=== PATIENT | female | born 1970 | race Caucasian/White ===

== ENCOUNTER 2021-11-12 09:06 | Outpatient (REF) | payer OTHER, SELFPAY ==
--- NOTE | 2021-11-12 09:15 | CRLHL7_ITS ---
For Patients: As a result of the Century Cures Act, medical imaging exams and procedure reports are released immediately into your electronic medical record. You may view this report before your referring provider. If you have questions, please contact your health care provider. BILATERAL SCREENING MAMMOGRAM WITH COMPUTER-AIDED DETECTION AND TOMOSYNTHESIS TECHNIQUE: CC and MLO views were obtained. These mammographic images have been obtained using full-field digital technique. These mammographic images were interpreted with the benefit of computer-aided detection. Breast Tomosynthesis was used in this interpretation. COMPARISON FILM: 11/11/2020 and 02/16/2017. BREAST COMPOSITION: The breasts are heterogeneously dense, which may obscure small masses FINDINGS: Possible 1.3 cm asymmetry LEFT medial breast 4 cm from the nipple. Negative findings RIGHT breast. IMPRESSION: Possible LEFT breast asymmetry. ASSESSMENT: BI-RADS Category 0: Incomplete: Need Additional Imaging Evaluation and/or Prior Mammograms for Comparison RECOMMENDATION: Recommend CC spot compression view and 90-degree lateral view. Additionally, ultrasound may be needed during the diagnostic evaluation. The [facility] will contact the patient for follow-up. A lay language report of this examination will be provided to the patient. Bozena Pizarro M.D. Diagnostic/Breast Radiologist [email or web address] PT/Dictated by: Bozena Pizarro MD @ 11/12/2021 11:06:00 AM (Electronically Signed)
== END 2021-11-12 09:07 | disposition home or self-care (01) ==
LOC: MAMMO 09:06
PROVIDERS: Visit Provider Nurse Practitioner Family
DX: Z12.31 Encounter for screening mammogram for malignant neoplasm of breast (principal); N63.20 Unspecified lump in the left breast, unspecified quadrant
CPT/HCPCS: 77063; 77067

== ENCOUNTER 2021-11-24 08:29 | Outpatient (CLI) | payer OTHER, SELFPAY ==
--- NOTE | 2021-11-24 08:45 | CRLHL7_ITS ---
For Patients: As a result of the Cures Act, medical imaging exams and procedure reports are released immediately into your electronic medical record. You may view this report before your referring provider. If you have questions, please contact your health care provider. DIGITAL DIAGNOSTIC LEFT MAMMOGRAM WITH TOMOSYNTHESIS AND COMPUTER-AIDED DETECTION, 11/24/2021 CLINICAL HISTORY: LEFT breast mass/asymmetry. COMPARISON: 11/12/2021, 11/11/2020, 02/16/2017. TECHNIQUE: Digital LEFT mammogram in two projections. Tomosynthesis and computer-aided detection utilized. BREAST COMPOSITION: The breasts are heterogeneously dense, which may obscure small masses. FINDINGS: 3D spot compression CC and 3D true lateral LEFT breast mammogram submitted. Decreased conspicuity of asymmetric density within the medial LEFT breast. Benign calcifications are present. No suspicious masses or architectural distortion. IMPRESSION: Normal additional views LEFT breast. No evidence of malignancy. RECOMMENDATIONS: Annual BILATERAL screening mammography. BI-RADS Category 2: Benign A lay language report of this examination will be provided to the patient. Dictated by Liu Ybarra MD @ 11/24/2021 9:16:49 AM jj/Dictated by: Liu Ybarra MD @ 11/24/2021 9:16:00 AM (Electronically Signed)
== END 2021-11-24 08:30 | disposition home or self-care (01) ==
LOC: MAMMO 08:30
PROVIDERS: Visit Provider Nurse Practitioner Family
DX: N63.20 Unspecified lump in the left breast, unspecified quadrant (principal); R92.8 Other abnormal and inconclusive findings on diagnostic imaging of breast
CPT/HCPCS: 77065; G0279

== ENCOUNTER 2023-01-20 16:51 | Emergency (ER) | payer OTHER, SELFPAY ==
[2023-01-20 17:54] VITALS: BP 189/85; PULSE 63; RESP 16; TEMP 36.4; O2SAT 97; BMI 37.4
--- NOTE | 2023-01-20 20:05 | ED.GENADULT ---
HPI - General Adult General Date Seen: 01/20/23 Chief complaint: Dental/Oral/Mouth Injury/Pain Stated complaint: Tooth pain and lump in cheek Time Seen by Provider: 01/20/23 19:48 Source: patient and family (Daughter is interpreting) Mode of arrival: ambulatory History of Present Illness HPI narrative: Patient is a 52-year-old female presented emergency department for right lower jaw pain. She states for the past 3 days she has been having pain at the 231. He has been trying given with a dentist or her primary care provider but cannot get in for several weeks. She states they have been working on that molar in the past and she is looking to have it removed. She states she has take Tylenol ibuprofen which will help with the pain for a couple hours then it comes back. She is unable to eat because it hurts to chew but she is able to open her jaw all the way. Has no issues drinking or breathing. Has not had any fevers or chills. Denies chest pain, shortness of breath, abdominal pain, weakness, numbness, diarrhea, constipation. Related Data Home Medications Medication Instructions Recorded Confirmed acetaminophen 500 mg tablet mg PO 01/20/23 aspirin 325 mg tablet 325 mg PO Q4-6H PRN 01/20/23 01/20/23 aspirin 81 mg tablet,delayed 81 mg PO DAILY 01/20/23 01/20/23 release atorvastatin 40 mg tablet 40 mg PO DAILY 01/20/23 01/20/23 ibuprofen 01/20/23 levothyroxine 75 mcg tablet 75 mcg PO QAM 01/20/23 01/20/23 metformin 500 mg tablet 500 mg PO DAILY 01/20/23 01/20/23 Allergies Allergy/AdvReac Type Severity Reaction Status Date / Time metronidazole [From Flagyl] Allergy Rash Verified 01/20/23 17:59 Review of Systems Status of ROS: Reports: 10 or more systems reviewed and unremarkable except as noted in History and below PFSH PFS Social History Smoking Status: Never smoker How often do you have a drink containing alcohol: 2-4 times a month AUDIT-C Alcohol total score: 2 Exam Narrative: Exam Narrative: Const: Well-nourished, Well-developed, in mild distress Eyes: PERRL, no conjunctival injection, and symmetrical lids ENMT: Atraumatic external nose and ears. Moist mucous membranes. Uvula midline, no tonsillar exudate. Dental randolph noted at tooth 31 with some gingival inflammation and erythema. Mild swelling to right lower jaw Neck: Symmetric, trachea midline, No thyromegaly. CVS: RRR, No murmurs or gallops. Peripheral pulses 2+ and equal in all extremities RESP: Unlabored respiratory effort. Clear to auscultation bilaterally. GI: Nontender/Nondistended, No rebound or guarding. MSK:Extremities w/o deformity, Normal Active ROM Skin: Warm, Dry. No rashes or lesions. Neuro: Normal Muscle tone, No focal neurological deficits. Psych: Awake, Alert, & Oriented x3. Appropriate mood and affect. Const: Vital Signs, click to edit/add: Vital Signs - 24 hr 01/20/23 17:54 Temperature 97.6 F Pulse Rate [Left P ulse Oximeter] 63 Respiratory Rate 16 Blood Pressure [Ri ght Upper Arm] 189/85 H Pulse Oximetry 97 Oxygen Delivery Me thod Room Air Course Vital Signs Vital signs: Initial Vital Signs Temperature 97.6 F 01/20/23 17:54 Temperature Source Temporal Artery Scan 01/20/23 17:54 Pulse Rate 63 01/20/23 17:54 Respiratory Rate 16 01/20/23 17:54 Blood Pressure 189/85 H 01/20/23 17:54 Blood Pressure Mean 119 H 01/20/23 17:54 Blood Pressure Position Sitting 01/20/23 17:54 Pulse Oximetry 97 01/20/23 17:54 Oxygen Delivery Method Room Air 01/20/23 17:54 Vital Signs Temperature 97.6 F 01/20/23 17:54 Pulse Rate 63 01/20/23 17:54 Respiratory Rate 16 01/20/23 17:54 Blood Pressure 189/85 H 01/20/23 17:54 Pulse Oximetry 97 01/20/23 17:54 Oxygen Delivery Method Room Air 01/20/23 17:54 Temperature 97.6 F 01/20/23 17:54 Pulse Rate 63 01/20/23 17:54 Respiratory Rate 16 01/20/23 17:54 Blood Pressure 189/85 H 01/20/23 17:54 Pulse Oximetry 97 01/20/23 17:54 Oxygen Delivery Method Room Air 09/07/23 17:54 Medical Decision Making MDM Narrative Medical decision making narrative: Patient is a 52-year-old female presents emergency department for 231 pain. He the past 3 days. Tylenol and ibuprofen helped for a couple hours then the pain comes back. No difficulty breathing or swallowing he says pain chewing. Is otherwise asymptomatic. She is hypertensive is not having any symptoms from that and thus workup is not necessary. Patient was given oxycodone for pain. She will be started on Augmentin and given a prescription of oxycodone. I informed to take Tylenol ibuprofen 1st use the oxycodone as a last resort. She states she is understandable. At this time there is no signs of deep neck space abscesses or large week angina. There is some mild swelling to the right lower jaw was otherwise unremarkable. She will be discharged home. Discharge Plan Discharge Clinical Impression: Dental caries Patient Disposition: Home, Self-Care Condition: Stable Instructions: Gingivostomatitis (ED) Additional Instructions: Make sure you get a dental appointment as soon as you can. Take Tylenol and ibuprofen for pain and if that is not helping you can use the oxycodone. Take the antibiotics as directed. Return for new or worsening symptoms. Prescriptions: No Action acetaminophen 500 mg tablet PO ibuprofen aspirin 325 mg tablet 325 mg PO Q4-6H PRN atorvastatin 40 mg tablet 40 mg PO DAILY metformin 500 mg tablet 500 mg PO DAILY aspirin 81 mg tablet,delayed release (DR/EC) 81 mg PO DAILY levothyroxine 75 mcg tablet 75 mcg PO QAM Stand Alone Forms: [employer] Info Instructions
[2023-01-20] MEDS: OXYCODONE 5 MG TABLET PO (20:20)
== END 2023-01-20 20:18 | disposition home or self-care (01) ==
LOC: ED 20:13
PROVIDERS: Emergency Provider Student in an Organized Health Care Education/Training Program; PCP Physician Assistant
DX: K02.9 Dental caries, unspecified (principal)
CPT/HCPCS: 99282; A9270

== ENCOUNTER 2023-08-27 14:14 | Outpatient (CLI) | payer OTHER, SELFPAY ==
--- OUTSIDE RECORDS SUMMARY | 2023-09-02 02:37 | XMS_ITS | Clinical Summary ---
Author Name Unknown Organization [facility] Address [place], [place] [address] Care Team Providers Care Merchandise Presentation Associate Name Role Phone Rosita Lexie ASTORGA Primary Care Provider [phone] Allergies Active Allergy Reactions Criticality Noted Date Comments Nitroimidazoles Rash 03/07/2012 Medications Medication Sig Dispensed Refills Start Date End Date Status acetaminophen (TYLENOL EXTRA STRGTH) 500 mg tabletIndications: Accidental fall, initial encounter,Facial injury, initial encounter Take 1-2 Tablets (500-1,000 mg) by mouth 3 times daily if needed for Headache or Pain. Max acetaminophen dose: 4000mg in 24 hrs. 100 Tablet 12/10/2022 Active atorvastatin (LIPITOR) 40 mg tabletIndications: Hypercholesterolem ia,Hypertriglyceri demia,CAD in jamul artery Take 1 Tablet (40 mg) by mouth once daily. 90 Tablet 3 12/10/2022 Active aspirin (ECOTRIN) 81 mg enteric coated tabletIndications: Brain aneurysm,CAD in jamul artery Take 1 Tablet (81 mg) by mouth once daily with a meal. 90 Tablet 3 12/10/2022 Active levothyroxine (SYNTHROID) 75 mcg tabletIndications: Hypothyroidism (acquired) Take 1 Tablet (75 mcg) by mouth before breakfast. 90 Tablet 3 12/10/2022 Active metFORMIN (GLUCOPHAGE) 500 mg tabletIndications: Prediabetes Take 1 Tablet (500 mg) by mouth once daily with a meal. 90 Tablet 3 12/10/2022 Active estradioL (ESTRACE) 0.01% (0.1 mg/g) vaginal creamIndications:V aginal atrophy Insert 0.5 g into the vagina at bedtime. Coloque por v a vaginal todas las noches naty 2 semanas y luego dos veces por semana en curso. 42.5 g 12/15/2022 Active polyethylene glycol-electrolyte (GOLYTELY) 236-22.74-6.74 -5.86 gram suspensionIndicati ons:Encounter for screening colonoscopy Drink 2 liters the day before colonoscopy and 2 liters 6 hours before colonoscopy procedure 4000 mL 06/20/2023 Active hydrOXYzine HCL (ATARAX) 25 mg tabletIndications: Stress reaction,Anxiety Take 1-2 Tablets (25-50 mg) by mouth every 8 hours if needed for Anxiety. 12 Tablet 08/27/2023 Active Active Problems Problem Noted Date Diagnosed Date Mixed hyperlipidemia 04/06/2023 HTN (hypertension) 04/06/2023 Brain aneurysm 01/07/2017 Overview: Bilateral incidental but enlarging MCA aneurysms. S/p stent-assisted coil embolization of right MCA aneurysm and coil embolization of left MCA aneurysm on 10/26/17. Coils/stent are MRI compatible up to 3 Princess. Requires antiplatelet life-long. Hypertriglyceridemia 08/06/2012 NSTEMI (non-ST elevated myocardial infarction) 0 08/05/2012 Overview: No stent placed Congenital hip dysplasia 01/28/2011 Resolved Problems Problem Noted Date Diagnosed Date Resolved Date Type 2 diabetes mellitus wit hout complication, without long-term current use of insulin 04/06/2023 04/12/2023 Troponin level elevated 08/06/201211/14 Cervical mass 03/15/2012 12/10/2022 Encounters Date Type Department Care Team Description 08/27/2023 3:20 PM CDT - 08/27/2023 5:29 PM CDT Emergency [facility] [address] [place] [address] Josh Webb PA Stress reaction (Primary Dx); Anxiety; Acute nonintractable headache, unspecified headache type; Elevated blood pressure reading Discharge Disposition: Home Self Care 08/27/2023 Travel 06/23/2023 Telephone [facility] [address] [place] [address] Shay Giles MD Appointment Reminder (Colonoscopy) from Last 3 Months Immunizations Name Administration Dates Next Due AMB Influenza, IIV3 (Age >=3 years)(Flu Clinic [facility]) 03/12/2013 Influenza, IIV3 (Age >=3 years) 03/12/2013,05/31 Influenza, IIV4 06/13/2018 Influenza, IIV4 (=>6mos) MDV 02/09/2017 Tdap 02/09/2017 Family History Medical History Relation Name Comments Unknown Father Hyperlipidemia Mother Hypertension Mother Diabetes Sister Stroke Sister Heart Disease No Family History Relation Name Status Comments Father Mother Sister Social History Tobacco Use Types Packs/Day Years Used Date Smoking Tobacco: Never Smokeless Tobacco: Never Tobacco Cessation:Counseling Given: Yes Alcohol Use Standard Drinks/Week Comments No 0 (1 standard drink = 0.6 oz pur e alcohol) PHQ-2 Answer Date Recorded PHQ-2 TOTAL SCORE 0 12/10/2022 Social Connections Answer Date Recorded Frequency of Communication with Friends and Fami ly 0 04/06/2023 Financial Resource Strain Answer Date R ecorded Difficulty of Paying Living Expenses 3 04/06/2023 Difficulty of Paying Living Expenses Not on file 04/06/2023 Food Insecurity Answer Date Recorded Worried About Running Out of Food in the Last Ye ar 1 04/06/2023 Transportation Needs Answer Date Record ed Lack of Transportation (Medical) 1 04/06/2023 Housing Stability Answer Date Recorded Unable to Pay for Housing in the Last Year 1 04/06/2023 Sex and Gender Information Value Date Recorded Sex Assigned at Not on file Gender Identity Not on file Sexual Orientation Not on file Obstetrics History Para Term AB IAB SAB Ectopic Multiple Livin g Live Births 3 2 2 1 1 2 Date Outcome GA Total Labor Labor/2nd/3rd Weight Sex Delivery Anes PTL Gabby A1 A5 Name Cl in Term Vag Term Vag SAB Last Filed Vital Signs Vital Sign Reading Time Taken Comments Blood Pressure 164/90 08/27/2023 4:07 PM CDT Pulse 88 08/27/2023 4:07 PM CDT Temperature 37.3 ??C (99.2 ??F) 08/27/2023 3:27 PM CD T Respiratory Rate 20 08/27/2023 3:27 PM CDT Oxygen Saturation 93% 08/27/2023 4:07 PM CDT Inhaled Oxygen Concentration - - Weight 74.6 kg (164 lb 6.4 oz) 08/27/2023 3:27 P M CDT Height 139.7 cm (4' 7) 08/27/2023 3:27 PM CDT Body Mass Index 38.21 08/27/2023 3:27 PM CDT Plan of Treatment Upcoming Encounters Date Type Department Care Team (Late st Contact Info) Description 09/07/2023 1:35 PM CDT Office Visit [facility] [address] [place] [address] Lexie Becker PA [address] [place] [address] Health Maintenance Due Date Last Done Comments Hepatitis C screening for age 18-79 12/04/1989 Colonoscopy through age 75 12/04/2016 Zoster (shingles) series for age 50+ (1 of 2) 12/04/2021 BMI (ht and wt on same day) for age 18+ 12/11/2023 12/10/2022, 06/13/2018, 10/07/2017, Additional history exists Depression screening for age 12+ 12/14/2023 12/13/2022, 12/10/2022, 12/10/2022, Additional history exists Influenza for age 50-64 01/15/2024 06/13/19 19, 02/09/2017, 03/12/2013, Additional history exists Mammogram for age 45-75 04/13/2024 04/13/20 23, 02/16/2017, 03/13/2013, Additional history exists Tetanus booster 02/09/2027 02/09/2017 Lipids for age 45-75 10/13/2027 10/12/2022, 04/15/2022, 10/21/2021, Additional history exists HIV for age 15-65 Completed 05/28/2013 Tdap Completed 02/09/2017 COVID-19 vaccine series Completed 03/08/20 23, 01/20/2022, 04/22/2021, Additional history exists Pneumococcal series for age 6-64 Aged Out No longer eligible based on patient's age to complete this topic Procedures Procedure Name Priority Date/Time Associated Diagnosis Comments CBC WITH AUTO DIFFERENTIAL STAT 08/27/2023 4:12 PM CDT TSH STAT 08/27/2023 4:12 PM CDT BASIC METABOLIC PANEL STAT 08/27/2023 4:12 PM CDT CBC WITH AUTO DIFFERENTIAL STAT 08/27/2023 4:12 PM CDT EKG 12 LEAD STAT 08/27/2023 4:09 PM CDT XR MAMMO BILAT SCREENING Routine 04/13/2023 9:00 AM MEDICAL OR SURGICAL INSTRUMENT MAKER Visit for screening mammogram LIPID PANEL Routine 10/12/2022 1:01 PM CDT ANTI HIV 1/2 Routine 05/28/2013 3:46 PM MEDICAL OR SURGICAL INSTRUMENT MAKER Screening for HIV (human immunodeficiency virus) from Last 3 Months or Most Recently Relevant to Health Maintenance Results * CBC WITH AUTO DIFFERENTIAL (08/27/2023 4:12 PM CDT) WHITE BLOOD COUNT 8.6 4.5 - 11.0 thou/cu mm 08/27/2023 4:18 PM CDT [facility] RED BLOOD COUNT 4.66 4.00 - 5.20 mil/cu mm 08/27/2023 4:18 PM CDT [facility] HEMOGLOBIN 13.5 12.0 - 16.0 g/dL 08/27/2023 4:18 PM CDT [facility] HEMATOCRIT 39.1 33.0 - 51.0 % 08/27/2023 4:[address] [facility] MCV 84 80 - 100 fL 08/27/2023 4:18 PM CDT [facility] MCH 29.0 26.0 - 34.0 pg 08/27/2023 4:18 PM CDT [facility] MCHC 34.5 32.0 - 36.0 g/dL 08/27/2023 4:[address] [facility] RDW 13.9 11.5 - 15.5 % 08/27/2023 4:[address] [facility] PLATELET COUNT 413 140 - 440 thou/cu mm 08/27/2023 4:[address] [facility] MPV 10.2 6.5 - 11.0 fL 08/27/2023 4:[address] [facility] % NEUT 72.7 % 08/27/2023 4:[address] [facility] % LYMPH 16.3 % 08/27/2023 4:[address] [facility] % MONO 9.3 % 08/27/2023 4:[address] [facility] % EOS 1.4 % 08/27/2023 4:[address] [facility] % BASO 0.3 % 08/27/2023 4:[address] [facility] ABSOLUTE NEUTROPHILS 6.3 1.7 - 7.0 thou/cu mm 08/27/2023 4:[address] [facility] ABSOLUTE LYMPHOCYTES 1.4 0.9 - 2.9 thou/cu mm 08/27/2023 4:[address] [facility] ABSOLUTE MONOCYTES 0.8 <0.9 thou/cu mm 08/27/2023 4:[address] [facility] ABSOLUTE EOSINOPHILS 0.1 <0.5 thou/cu mm 08/27/2023 4:[address] [facility] ABSOLUTE BASOPHILS 0.0 <0.3 thou/cu mm 08/27/2023 4:[address] [facility] Blood BLOOD SPECIMEN / Unknown Venipuncture / Unknown 08/27/2023 4:12 PM CDT 08/27/2023 4:15 PM T Josh ASTORGA HEMATOLOGY [facility] [address] [place] [address] * TSH (08/27/2023 4:12 PM CDT) Pathologist [facility] TSH 2.36 0.27 - 4.20 uIU/mL 08/27/2023 4:[address] [facility] Blood BLOOD SPECIMEN / Unknown Venipuncture / Unknown 08/27/2023 4:12 PM CDT 08/27/2023 4:15 PM CDT [facility] - 08/27/2023 4:43 PM CDT In Adults, TSH values between 5.00 and 10.00 uIU/ml do not necessarily indicate the presence of Hypothyroidism. Correlation with clinical findings such as presence of goiter and/or Thyroperoxidase (TPO) Antibody may be helpful. For more information please refer to JUVENTINO 2004; 291: 228-238. Josh ASTORGA CHEMISTRY [facility] [address] [place] [address] * (ABNORMAL) BASIC METABOLIC PANEL (08/27/2023 4:12 PM CDT) Pathologist [facility] SODIUM 141 136 - 145 mmol/L 08/27/2023 4:[address] [facility] POTASSIUM 3.8 3.5 - 5.1 mmol/L 08/27/2023 4:[address] [facility] CHLORIDE 102 98 - 107 mmol/L 08/27/2023 4:[address] [facility] CO2,TOTAL 29 22 - 29 mmol/L 08/27/2023 4:[address] [facility] ANION GAP 10 5 - 18 08/27/2023 4:[address] [facility] GLUCOSE 127(H) 70 - 99 mg/dL 08/27/2023 4:[address] [facility] CALCIUM 9.6 8.6 - 10.0 mg/dL 08/27/2023 4:[address] [facility] BUN 11 6 - 20 mg/dL 08/27/2023 4:[address] [facility] CREATININE 0.69 0.50 - 0.90 mg/dL 08/27/2023 4:43 PM CDT [facility] BUN/CREAT RATIO 16 10 - 20 4:43 PM CDT [facility] eGFR >90 >90 mL/min/1.7 3m2 08/27/2023 4:43 PM CDT [facility] Comment:As of 2021, eG FR is calculated by the CKD-EPI creatinine equation without race adjustment. ??eGFR can be influenced by muscle mass, exercise, and diet. ??The reported eGFR is an estimation only and is only applicable if the renal function is stable. Blood BLOOD SPECIMEN / Unknown Venipuncture / Unknown 08/27/2023 4:12 PM CDT 08/27/2023 4:15 PM CDT Josh ASTORGA CHEMISTRY Performing Organization Address City/[facility] Co de Phone Number [facility] [address] [place] [address] * EKG 12 LEAD (08/27/2023 4:09 PM CDT) Interpretation Normal sinus rhythm Nonspecific ST and T wave abnormality Abnormal ECG When compared with ECG of 07-AUG-2012 23:10, Premature ventricular complexes are no longer Present [facility] NOW Ventricular Rate 81 BPM [facility] NOW Atrial Rate 81 BPM BEYOND NOW P-R Interval 126 ms BEYOND NOW QRS Duration 98 ms BEYOND NOW QT 410 ms BEYOND NOW QTc 476 ms BEYOND NOW P [place] 48 degrees BEYOND NOW R [place] -10 degrees BEYOND NOW T [place] -14 degrees BEYOND NOW 08/27/2023 4:09 PM CDT 08/28/2023 6:15 AM CDT Josh ASTORGA EKG ORD Performing Organization Address City/[facility] Co de Phone Number [place] NOW [place], [place] * XR MAMMO BILAT SCREENING (04/13/2023 9:00 AM MEDICAL OR SURGICAL INSTRUMENT MAKER) Anatomical Region Laterality Modality BREASTS, Breast Left, Breast Right Bilateral Mammography Impressions 04/14/2023 9:22 AM MEDICAL OR SURGICAL INSTRUMENT MAKER ??There is no radiographic evidence for malignancy. ??Recommend annual mammograms. MAMMOGRAM ASSESSMENT: ??ACR 1 Negative PATIENTS: You will also receive a letter with your examination results in an easy to read format. ??If you have questions about your results, please contact your referring provider. Narrative 04/14/2023 9:22 AM MEDICAL OR SURGICAL INSTRUMENT MAKER For Patients: As a result of the Cures Act, medical imaging exams and procedure reports are released immediately into your electronic medical record. You may view this report before your referring provider. If you have questions, please contact your health care provider. XR MAMMO BILAT SCREENING [[id number]] CLINICAL HISTORY: ??This is an asymptomatic 52 y.o. patient. INDICATION FOR EXAM: Mammogram Screening. TECHNIQUE: CC & MLO views were obtained. ??This study was evaluated with the assistance of Computer-Aided Detection. COMPARISON FILM: Yes 11/11/20 Outside Facility 02/16/17 [facility] FINDINGS: ??The breasts are heterogeneously dense, which may obscure small masses. There are no dominant masses, suspicious micro calcifications or areas of architectural distortion. Lexie ASTORGA MAMMO * (ABNORMAL) LIPID PANEL (10/12/2022 1:01 PM CDT) CHOLESTEROL,TOTAL 147 100 - 199 mg/dL 10/13/2022 10:[address] [facility] TRIGLYCERIDES 383(H) <150 mg/dL 10/13/2022 10:[address] [facility] HDL CHOLESTEROL 32(L) >40 mg/dL 10:[address] [facility] NON-HDL CHOLESTEROL 115 <145 mg/dl 10/13/2022 10:[address] [facility] CHOL/HDL RATIO 4.59(H) <4.50 10/13/2022 10:[address] [facility] LDL CHOLESTEROL 38 <=130 mg/dL 10/13/2022 10:[address] [facility] VLDL CHOLESTEROL 77(H) <=30 mg/dL 10/13/2022 10:31 AM CDT [facility] PROVIDER ORDERED STATUS RANDOM 10/13/2022 10:31 AM CDT [facility] Blood BLOOD SPECIMEN / Unknown 10/12/2022 1:01 PM CDT 10/13/2022 9:47 AM CDT [place] Latif MD CHEMISTRY [facility] [address] [place] [address] * ANTI HIV 1/2 (05/28/2013 3:46 PM MEDICAL OR SURGICAL INSTRUMENT MAKER) ANTI HIV 1/2 Non-reacti ve [facility] Blood specimen (specimen) BLOOD SPECIMEN / Unknown 05/28/2013 3:46 PM MEDICAL OR SURGICAL INSTRUMENT MAKER 05/28/2013 3:41 PM MEDICAL OR SURGICAL INSTRUMENT MAKER Mary ASTORGA SEND OUTS [facility] INTERNAL ZIP [id number] [place] [phone] from Last 3 Months or Most Recently Relevant to Health Maintenance Advance Directives * Full Code (Latest Code Status on File) Date Activated Date Inactivated Comments 10/26/2017 8:07 AM 10/27/2017 3:25 PM Question Answer Comments Code Status Discussion: Not Discussed Will dis cuss on day of admission * Full Code Date Activated Date Inactivated Comments 08/05/2012 8:22 PM 08/08/2012 9:44 PM * Full Code Date Activated Date Inactivated Comments 04/25/2012 7:53 PM 04/26/2012 4:05 PM * Full Code Date Activated Date Inactivated Comments 04/25/2012 2:09 PM 04/25/2012 7:53 PM Care Teams Merchandise Presentation Associate Relationship Specialty Start Date End Date Lexie Becker [place] [address] PCP - General Physician Pin 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
--- OUTSIDE RECORDS SUMMARY | 2023-09-02 02:37 | XMS_ITS | Data Portability ---
Author Name Unknown Address [address] [place] [address] Phone [phone] Organization [place] - LEYIOCecilio diaz [facility] Address [address] [place] [phone] Assessment Encounter Date Assessment Date Assessment LastModified by Organization Details LastModified Time 08/24/2021 08/24/2021 Patient will continue care with PCP Dr. Latif. [email or web address] Not available 08/24/2021 15:57:09 01/20/2022 01/20/2022 Moderna bivalent booster Not available 01/20/2022 10:44:54 Plan of Treatment Reminders Order Date Submit Date Provider Last Modified By Organization Details Last Modified Time Details Appointments None recorded. Lab HbA1c (hemoglobi n A1c), blood 2022 023 [facility], [address] [place] [address], [phone], 3 14:30:49 lipid panel, serum 2022 023 [facility], [address] [place] [address], [address], 3 13:00:07 TSH, serum or plasma 2022 023 [facility], [address] [place] [address], [address], 3 13:00:07 HbA1c (hemoglobi n A1c), blood 2022 023 [facility], [address] [place] [address], [address], 3 13:00:07 CBC w/ auto diff 2021 [facility], [facility] [place], [address], 16:55:26 CT + NG RNA, PCR, unspecifie d specimen - Urine 2021 [facility], [address] [facility] [place], [address], 20:48:55 hepatitis C virus Ab, serum 2021 [facility], [facility] [place], [address], 20:48:54 HIV 1+2 Ab + HIV1 p24 Ag, quantitati ve immunoassa y, serum 2021 [facility], [facility] [place], [address], 18:47:10 treponema pallidum screen, serum, reflex confirmati on 2021 [facility], [address] [facility] [place], [address], 2 09:38:13 lipid panel, serum 2021 [facility], [address] [place] [address], [address], 10:15:27 TSH, serum or plasma 2021 [facility], [address] [place] [address], [address], 10:15:27 TSH, serum or plasma 2021 022 [facility], [address] [place] [address], [address], 2 18:23:36 lipid panel, serum 2021 022 [facility], [address] [place] [address], [address], 2 18:17:59 CMP, serum or plasma 2021 022 [facility], [address] [place] [address], [address], 2 18:17:58 TSH, serum or plasma 2020 021 JOSE Not available 1 14:40:28 fecal occult blood, stool [address], [address] [place] [address], [address], 2 15:04:02 lipid panel, serum 2019 020 JOSE Not available 1 15:33:31 hemoglobin A1C/hemogl obin total, QN, blood 2019 020 JOSE Not available 1 13:32:43 CBC w/ auto diff 2019 JOSE Not available 0 10:18:47 CMP, serum or plasma 2019 020 JOSE Not available 0 11:13:22 lipid panel, serum 2019 020 JOSE Not available 0 11:13:22 TSH, serum or plasma 2019 020 JOSE Not available 0 11:13:[address] referral 2022 023 [email or web address] Not available 3 15:11:49 Procedures None recorded. Surgeries None recorded. Imaging MAMMO, screening, bilateral 04/11/ 2022 04/11/2 022 [facility] Non Stat, [address], [place], [address], 17:11:35 Medication Orders Florajen Acidophilu s 20 billion cell capsule 2022 023 [facility], [address] [place] [address], [address], 3 18:42:14 metformin 500 mg tablet 2022 023 [facility], [address] [place] [address], [address], 3 19:50:32 Voltaren Arthritis Pain 1 % topical gel [address], [address], 12:39:37 aspirin 81 mg tablet,del ayed release 2021 022 [facility], [address] [place] [address], [address], 2 13:31:35 atorvastat in 40 mg tablet 2021 022 [facility], [address] [place] [address], [address], 13:31:36 levothyrox ine 75 mcg tablet 2021 022 [facility], [address] [place] [address], [address], 2 13:31:35 aspirin 81 mg tablet,del ayed release 2021 022 [facility], [address] [place] [address], [address], 2 10:40:51 atorvastat in 40 mg tablet [address], [address], 2 10:40:50 Fish Oil 340 mg-1,000 mg capsule [address], [address], 2 12:10:59 levothyrox ine 75 mcg tablet [address], [address], 2 10:40:51 levothyrox ine 100 mcg tablet [email or web address], [address], 2 11:39:46 atorvastat in 40 mg tablet [address], [address], 1 18:13:22 atorvastat in 40 mg tablet 2019 020 [email or web address] Not available 0 15:34:41 atorvastat in 20 mg tablet 2019 020 shaun Not available 0 15:34:04 aspirin 81 mg tablet,del ayed release 2019 020 ATHENAFAX Not available 0 19:25:09 Patient Targets Encounter Date Encounter Id Patient Goals Patient Target Last Modified By Organization Details Last Modified Time incr walking shaun Not available 09/25/2020 10:20:07 Patient Instructions Encounter Date Encounter Id Patient Instructions Last Modified By Organization Details Last Modified Time 10/26/2022 [id number] try to drop weig ht to avoid diabetes and lower lipids shaun Not available 10/27/2022 12:38:17 needs a mammogram shanu Not availabl e 10/27/2022 12:38:32 07/13/2022 [id number] eat three medium sized meals a day shaun Not available 07/14/2022 11:33:50 06/15/2022 [id number] take meds in am, avoid sugary foods shaun Not available 06/15/2022 19:51:47 check glucometer next visit shaun Not available 06/15/2022 20:07:52 02/18/2022 [id number] stick to low cholesterol diet, get a booster shaun Not available 02/18/2022 16:33:32 copies of lab given to patient shaun Not available 02/18/2022 16:33:59 01/20/2022 [id number] May take Ibuprofen/Tylenol prn, ice to arm prn. Not available 01/20/2022 13:02:36 11/12/2021 [id number] decrease carbohydrates justina rice, goal weight is arnd 150 shaun Not available 11/12/2021 13:30:56 08/24/2021 [id number] aprenda acerca d e las pruebas de detecci??n del c??ncer de seno - [learning about breast cancer screening] [email or web address] Not available 08/24/2021 12:10:36 06/04/2021 [id number] will call about stool sample shaun Not available 06/04/2021 10:47:39 12/02/2020 [id number] doing well with lipids shaun Not available 12/02/2020 17:12:49 10/27/2020 [id number] needs mammogram shaun Not available 10/27/2020 18:11:34 call after mammogram shaun Not available 10/27/2020 18:12:08 05/05/2020 [id number] avoid red meat, watch milk products, se margarine, try to walk more shaun Not available 05/05/2020 15:32:16 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 Pr ediabetes Referring Physician: Berlin Latif, Internal Medicine, Encounter Date: 06/15/2022 Results Created Date Observation Date Name Description Value Unit Range Abnormal Flag LastModifiedBy Organization Detail LastModifiedTime 04/11/2004/11/2020 CBC w/ auto diff WBC 8.30 Not Available [facility] [address] [place], [address], 04/11/2020 10:06:24 04/11/20 20 04/11/2020 CBC w/ auto diff HGB 13.9 Not Available [facility] [address] [place], [address], 04/11/2020 10:06:24 04/11/20 20 04/11/2020 CBC w/ auto diff platelet count 429 Not Available [facility] [address] [place], [address], 04/11/2020 10:06:24 04/11/20 20 04/11/2020 TSH, serum or plasm a total cholesterol 191 Not Available [facility] [address] [place], [address], 04/11/2020 11:13:22 04/11/20 20 04/11/2020 TSH, serum or plasm a HDL 24 Not Available [facility] [address] [place], [address], 04/11/2020 11:13:22 04/11/20 20 04/11/2020 TSH, serum or plasm a LDL -199 Not Available [facility] [address] [place], [address], 04/11/2020 11:13:22 04/11/20 20 04/11/2020 TSH, serum or plasm a triglyceride s 1830 Not Available [facility] [address] [place], [address], 04/11/2020 11:13:22 04/11/20 20 04/11/2020 TSH, serum or plasm a ALT 28 Not Available [facility] [address] [place], [address], 04/11/2020 11:13:22 04/11/20 20 04/11/2020 TSH, serum or plasm a creatinine 0.60 Not Available [facility] [address] [place], [address], 04/11/2020 11:13:22 04/11/20 20 04/11/2020 TSH, serum or plasm a TSH 6.29 high Not Available [facility] [address] [place], [address], 04/11/2020 11:13:22 04/11/20 20 04/11/2020 CMP, serum or plasm a total cholesterol 191 Not Available [facility] [address] [place], [address], 04/11/2020 11:13:22 04/11/20 20 04/11/2020 CMP, serum or plasm a HDL 24 Not Available [facility] [address] [place], [address], 04/11/2020 11:13:22 04/11/20 20 04/11/2020 CMP, serum or plasm a LDL -199 Not Available [facility] [address] [place], [address], 04/11/2020 11:13:22 04/11/20 20 04/11/2020 CMP, serum or plasm a triglyceride s 1830 Not Available [facility] [address] [place], [address], 04/11/2020 11:13:22 04/11/20 20 04/11/2020 CMP, serum or plasm a ALT 28 Not Available [facility] [address] [place], [address], 04/11/2020 11:13:22 04/11/20 20 04/11/2020 CMP, serum or plasm a creatinine 0.60 Not Available [facility] [address] [place], [address], 04/11/2020 11:13:22 04/11/20 20 04/11/2020 CMP, serum or plasm a TSH 6.29 high Not Available [facility] [address] [place], [address], 04/11/2020 11:13:22 04/11/20 20 04/11/2020 lipid panel , serum total cholesterol 191 Not Available [facility] [address] [place], [address], 04/11/2020 11:08:14 04/11/20 20 04/11/2020 lipid panel , serum HDL 24 Not Available [facility] [address] [place], [address], 04/11/2020 11:08:14 04/11/20 20 04/11/2020 lipid panel , serum LDL -199 Not Available [facility] [address] [place], [address], 04/11/2020 11:08:14 04/11/20 20 04/11/2020 lipid panel , serum triglyceride s 1830 Not Available [facility] [address] [place], [address], 04/11/2020 11:08:14 04/11/20 20 04/11/2020 lipid panel , serum ALT 28 Not Available [facility] [address] [place], [address], 04/11/2020 11:08:14 04/11/20 20 04/11/2020 lipid panel , serum creatinine 0.60 Not Available [facility] [address] [place], [address], 04/11/2020 11:08:14 04/11/20 20 04/11/2020 lipid panel , serum TSH 6.29 high Not Available [facility] [address] [place], [address], 04/11/2020 11:08:14 07/29/19 21 07/28/2020 hemog lobin A1C/h emogl obin total , QN, blood hemoglobin A1C 6.0 Not Available [facility]) [address] [place], [address], 07/30/2020 13:12:15 07/29/19 21 07/28/2020 lipid panel , serum total cholesterol 185 Not Available Not Available 07/29/2020 15:14:17 07/29/19 21 07/28/2020 lipid panel , serum triglyceride s 972 Not Available Not Available 15:14:17 07/29/19 21 07/28/2020 lipid panel , serum HDL 24 Not Available Not Available 07/14 15:14:17 07/29/19 21 07/28/2020 lipid panel , serum LDL n/a Not Available Not Available 07/14 15:14:17 10/23/19 21 10/22/2020 TSH, serum or plasm a total cholesterol 79 Not Available [address], [address], 10/23/2020 12:44:23 10/23/19 21 10/22/2020 TSH, serum or plasm a triglyceride s 148 Not Available [address], [address], 10/23/2020 12:44:23 10/23/19 21 10/22/2020 TSH, serum or plasm a HDL 28 Not Available [address], [address], 10/23/2020 12:44:23 10/23/19 21 10/22/2020 TSH, serum or plasm a LDL 21 Not Available [address], [address], 10/23/2020 12:44:23 10/23/19 21 10/22/2020 TSH, serum or plasm a TSH 0.02 Not Available [address], [address], 10/23/2020 12:44:23 10/23/19 21 10/22/2020 lipid panel , serum total cholesterol 79 Not Available [facility] [address], [address], 10/23/2020 12:31:12 10/23/19 21 10/22/2020 lipid panel , serum triglyceride s 148 Not Available [address] [place], [address], 10/23/2020 12:31:12 10/23/19 21 10/22/2020 lipid panel , serum HDL 28 Not Available [address], [address], 10/23/2020 12:31:12 10/23/19 21 10/22/2020 lipid panel , serum LDL 21 Not Available [address], [address], 10/23/2020 12:31:12 10/23/19 21 10/22/2020 lipid panel , serum TSH 0.02 Not Available [address], [address], 10/23/2020 12:31:12 05/13/20 21 05/13/2021 TSH, serum or plasm a TSH 3.25 Not Available Not Available 04/17 13:08:29 10/22/19 22 10/21/2021 lipid panel , serum creatinine 0.[address] [facility] [address] [place] [address], [address], 10/22/2021 18:17:59 10/22/19 22 10/21/2021 lipid panel , serum ALT 26 Not Available [facility] [address] [place] [address], [address], 10/22/2021 18:17:59 10/22/19 22 10/21/2021 lipid panel , serum total cholesterol 131 Not Available [facility] [address] [place] [address], [address], 10/22/2021 18:17:59 10/22/19 22 10/21/2021 lipid panel , serum triglyceride s 436 high Not Available [address], [address], 10/22/2021 18:17:59 10/22/19 22 10/21/2021 lipid panel , serum HDL 27 low Not Available [facility] [address] [place] [address], [address], 10/22/2021 18:17:59 10/22/19 22 10/21/2021 lipid panel , serum LDL invalid Not Available [facility] [address] [place] [address], [address], 10/22/2021 18:17:59 10/22/19 22 10/21/2021 CMP, serum or plasm a creatinine 0.73 Not Available [address], [address], 10/22/2021 12:26:12 10/22/19 22 10/21/2021 CMP, serum or plasm a ALT 26 Not Available [facility] [address] [place] [address], [address], 10/22/2021 12:26:12 10/22/19 22 10/21/2021 CMP, serum or plasm a total cholesterol 131 Not Available [address], [address], 10/22/2021 12:26:12 10/22/19 22 10/21/2021 CMP, serum or plasm a triglyceride s 436 high Not Available [address], [address], 10/22/2021 12:26:12 10/22/19 22 10/21/2021 CMP, serum or plasm a HDL 27 low Not Available [facility] [address] [place] [address], [address], 10/22/2021 12:26:12 10/22/19 22 10/21/2021 CMP, serum or plasm a LDL invalid Not Available [facility] [address] [place] [address], [address], 10/22/2021 12:26:12 10/22/19 22 10/21/2021 TSH, serum or plasm a TSH 0.83 Not Available [facility] [address] [place] [address], [address], 10/22/2021 13:12:30 04/15/20 22 04/15/2022 TSH, serum or plasm a total cholesterol 146 Not Available [address], [address], 04/20/2022 10:15:27 04/15/20 22 04/15/2022 TSH, serum or plasm a triglyceride s 297 high Not Available [address], [address], 04/20/2022 10:15:27 04/15/20 22 04/15/2022 TSH, serum or plasm a HDL 37 low Not Available [facility] [address] [place] [address], [address], 04/20/2022 10:15:27 04/15/20 22 04/15/2022 TSH, serum or plasm a LDL 50 Not Available [facility] [address] [place] [address], [address], 04/20/2022 10:15:27 04/15/20 22 04/15/2022 TSH, serum or plasm a TSH 1.83 Not Available [facility] [address] [place] [address], [address], 04/20/2022 10:15:27 04/15/20 22 04/15/2022 lipid panel , serum total cholesterol 146 Not Available [address], [address], 04/18/2022 09:10:31 04/15/20 22 04/15/2022 lipid panel , serum triglyceride s 297 high Not Available [address], [address], 04/18/2022 09:10:31 04/15/20 22 04/15/2022 lipid panel , serum HDL 37 low Not Available [facility] [address] [place] [address], [address], 04/18/2022 09:10:31 04/15/20 22 04/15/2022 lipid panel , serum LDL 50 Not Available [facility] [address] [place] [address], [address], 04/18/2022 09:10:31 04/15/20 22 04/15/2022 lipid panel , serum TSH 1.83 Not Available [facility] [address] [place] [address], [address], 04/18/2022 09:10:31 10/13/19 23 10/12/2022 lipid panel , serum A1C 5.8 Not Available [facility] [address] [place], [address], 10/13/2022 13:00:07 10/13/19 23 10/12/2022 lipid panel , serum TSH 2.12 Not Available [facility] [address] [place], [address], 10/13/2022 13:00:07 10/13/19 23 10/12/2022 lipid panel , serum total cholesterol 147 Not Available [facility] [address] [place], [address], 10/13/2022 13:00:07 10/13/19 23 10/12/2022 lipid panel , serum triglyceride s 383 high Not Available [facility] [address] [place], [address], 10/13/2022 13:00:07 10/13/19 23 10/12/2022 lipid panel , serum HDL 32 low Not Available [facility] [place], [address], 10/13/2022 13:00:07 10/13/19 23 10/12/2022 lipid panel , serum LDL 38 Not Available [facility] [place], [address], 10/13/2022 13:00:07 10/13/19 23 10/12/2022 TSH, serum or plasm a A1C 5.8 Not Available [facility] [address] [place] [address], [address], 10/13/2022 13:00:07 10/13/19 23 10/12/2022 TSH, serum or plasm a TSH 2.12 Not Available [facility] [address] [place] [address], [address], 10/13/2022 13:00:07 10/13/19 23 10/12/2022 TSH, serum or plasm a total cholesterol 147 Not Available [facility] [address] [place] [address], [address], 10/13/2022 13:00:07 10/13/19 23 10/12/2022 TSH, serum or plasm a triglyceride s 383 high Not Available [facility] [address] [place] [address], [address], 10/13/2022 13:00:07 10/13/19 23 10/12/2022 TSH, serum or plasm a HDL 32 low Not Available [facility] [address] [place] [address], [address], 10/13/2022 13:00:07 10/13/1910/12/2022 TSH, serum or plasm a LDL 38 Not Available [facility] [address] [place] [address], [address], 10/13/2022 13:00:07 10/13/19 23 10/12/2022 HbA1c (hemo globi n A1c), blood A1C 5.8 Not Available [facility] [address] [place], [address], 10/13/2022 12:34:24 10/13/19 23 10/12/2022 HbA1c (hemo globi n A1c), blood TSH 2.12 Not Available [facility] [address] [place], [address], 10/13/2022 12:34:24 10/13/19 23 10/12/2022 HbA1c (hemo globi n A1c), blood total cholesterol 147 Not Available [facility] [address] [place] [address], [address], 10/13/2022 12:34:24 10/13/19 23 10/12/2022 HbA1c (hemo globi n A1c), blood triglyceride s 383 high Not Available [facility] [address] [place] [address], [address], 10/13/2022 12:34:24 10/13/19 23 10/12/2022 HbA1c (hemo globi n A1c), blood HDL 32 low Not Available [facility] [address] [place], [address], 10/13/2022 12:34:24 10/13/19 23 10/12/2022 HbA1c (hemo globi n A1c), blood LDL 38 Not Available [facility] [address] [place] [address], [address], 10/13/2022 12:34:24 11/22/19 21 11/11/2020 MAMMO teodora, bilat eral No observ ation record ed. [facility] Radiology Department [address] [place], [address], 11/26/2020 17:53:35 01/13/20 22 11/24/2021 MAMMO teodora, bilat eral No observ ation record ed. [facility] Non Stat [address] [place] [address], [address], 01/12/2022 17:12:41 01/13/20 22 11/24/2021 MAMMO , scree mery, bilat eral No observ ation record ed. [facility] Non Stat [address] [place], [address], 01/12/2022 17:12:14 01/13/20 22 11/12/2021 MAMMO , scree mery, bilat eral No observ ation record ed. [facility] Non Stat [address] [place], [address], 01/12/2022 17:11:35 Result Notes None recorded. Problems Name Status Onset Date Resolution Date Notes Provider Name and Address Organization Details Recorded Time Hysterectomy Active 022 Berlin Latif MD [address] [facility] [place], [address], [facility] [employer] 2 10:50:01 Hyperlipidemia Active 021 Berlin Latif MD [address] [facility] [place], [address], [facility] [employer] 2 16:27:51 Myocardial infarction Completed 012 05/16/2011 preinfa rction per patient Manda Colmenares NP [address] [facility] [place], [address], [facility] 1 12:27:35 Hypothyroidism Active 021 Berlin Latif MD [address] [facility] [place], [address], [facility] [employer] 3 11:34:11 Prediabetes Active 021 Berlin Latif MD [address] [facility] [place], [address], [facility] 2 16:28:12 Bilateral dysplastic hip Active 021 Manda Colmenares NP [address] [facility] [place], [address], [facility] 12:21:37 CVA - cerebrovascular accident due to cerebral artery occlusion Completed 017 07/31/2020 Manda Colmenares, CRISTOBAL [address] [facility] [place], [address], [facility] 12:27:10 Problem Notes None recorded. Procedures Surgical History Date Name Laterality Status Provider Name and Address Organization Details Recorded Time 05/16/19 Brain aneurysm repr simple completed Manda Colmenares, CRISTOBAL [address] [place], [address], [facility] 07/31/2020 12:26:05 hysterectomy completed Linda Bustillo, CRISTOBAL [address] [place], [address], [facility] 08/24/2021 09:48:40 Imaging Results Imaging Date Name Status LastModified by Organiz ation Details LastModified Time 11/11/2020 MAMMO, screening, bilateral completed [facility] Radiology Department [address] [place], [address], 11/26/2020 17:53:35 11/24/2021 MAMMO, screening, bilateral completed [facility] Non Stat [address] [facility] [place], [address], 01/12/2022 17:12:41 11/24/2021 MAMMO, screening, bilateral completed [facility] Non Stat [address] [facility] [place], [address], 01/12/2022 17:12:14 11/12/2021 MAMMO, screening, bilateral completed [facility] Non Stat [address] [facility] [place], [address], 01/12/2022 17:11:35 Procedure Notes None recorded. Medical Equipment None Reported. Allergies Allergen ID Allergen Name Allergen Category Reaction Reaction Severity Criticality Documentation Date Start Date Code Code System Note Provider Name and Address Organization Details Recorded Time 411 Flagyl medicatio n rash mild Not available 07/31/2020 6 RxNorm Manda Colmenares, CRISTOBAL [address] [place], [address], [facility] 12:30:16 Medications Name Sig Start Date Stop Date Status Note LastModified by Organization Details LastModified Time tab-a-lester tabs TAKE ONE TABLET BY MOUTH ONCE DAILY 12/02 completed Not Available Not Available Not Available multivitami n tablet Take 1 tablet every day by oral route. 2020 active Not Available Not Available Not Avai lable atorvastati n 40 mg tablet TAKE ONE TABLET BY MOUTH EVERY DAY 2021 active Not Available Not Available Not Avai lable metformin 500 mg tablet Take 0.5 tablets every day by oral route. 2022 active Not Available Not Available Not Avai lable atorvastati n 20 mg tablet Take 1 tablet every day by oral route. 05/05 completed Not Available Not Available Not Available aspirin 81 mg tablet,wojciech yed release Take 1 tablet every day by oral route. 2021 active Not Available Not Available Not Avai lable levothyroxi ne 75 mcg tablet TAKE ONE TABLET BY MOUTH ONCE DAILY 2021 active Not Available Not Available Not Avai lable levothyroxi ne 100 mcg tablet TAKE ONE TABLET BY MOUTH ONCE DAILY 08/24 completed Not Available Not Available Not Available levothyroxi ne 112 mcg tablet TAKE ONE TABLET BY MOUTH ONCE DAILY 10/27 completed Not Available Not Available Not Available omega-3 acid ethyl esters 1 gram capsule Take 2 capsules twice a day by oral route. 10/17 completed Not Available Not Available Not Available Fish Oil 340 mg-1,000 mg capsule TAKE TWO CAPSULES BY MOUTH TWICE A DAY 11/12 completed Not Available Not Available Not Available levothyroxi ne 112 mcg capsule Take 1 capsule every day by oral route. 10/01 completed Not Available Not Available Not Available Florajen Acidophilus 20 billion cell capsule Take 1 capsule by oral route. 2022 active Not Available Not Available Not Avai lable Voltaren Arthritis Pain 1 % topical gel APPLY 2 GRAMS TO THE AFFECTED AREA(S) BY TOPICAL ROUTE 4 TIMES PER DAY 2021 active Not Available Not Available Not Malka madison Vitals Date Recorded Body weight Heart rate Systolic blood pressure Diastolic blood pressure Provider Name and Address Organization Details Last Updated DateTime 07/28/2020 77684.96 g 72 /min 137 mm[Hg] 79 mm[Hg] TOMMY ARCEO LGSW [address] [place], [address] , [facility] [employer] 07/28/2020 10:24:33 Date Recorded Body height Body mass index (BMI) Body weight Systolic blood pressure Diastolic blood pressure Provider Name and Address Organization Details Last Updated DateTime 10/27/2020 137.16 cm 36.3 kg/m2 67332.37 g 131 mm[Hg] 75 mm[Hg] Berlin Latif MD [address] [place], [address], [facility] [employer] 1 14:05:50 Date Recorded Body height Body mass index (BMI) Body weight Systolic blood pressure Diastolic blood pressure Provider Name and Address Organization Details Last Updated DateTime 06/04/2021 137.16 cm 40.3 kg/m2 23119.93 g 141 mm[Hg] 81 mm[Hg] Berlin Latif MD [address] [place], [address], [facility] [employer] 2 10:44:19 Date Recorded Body height Heart rate Body mass index (BMI) Body weight Systolic blood pressure Diastolic blood pressure Provider Name and Address Organization Details Last Updated DateTime 2 137.16 cm 66 /min 40.3 kg/m2 05100.9 3 g 130 mm[Hg] 77 mm[Hg] Linda Bustillo NP [address] [place], [address], [facility] [employer] 2 12:13:50 Date Recorded Body height Body mass index (BMI) Body weight Heart rate Systolic blood pressure Diastolic blood pressure Provider Name and Address Organization Details Last Updated DateTime 2 137.16 cm 38.6 kg/m2 60479.7 8 g 69 /min 126 mm[Hg] 75 mm[Hg] Melvin Cowart [facility], [facility] 2 11:58:20 Date Recorded Body height Heart rate Systolic blood pressure Diastolic blood pressure Provider Name and Address Organization Details Last Updated DateTime 02/08/2022 137.16 cm 84 /min 133 mm[Hg] 78 mm[Hg] Linda Bustillo NP [address] [place], [address] , [facility] 02/08/2022 11:19:30 Date Recorded Body height Body mass index (BMI) Body weight Systolic blood pressure Diastolic blood pressure Provider Name and Address Organization Details Last Updated DateTime 06/15/2022 137.16 cm 37.2 kg/m2 25687.66 g 137 mm[Hg] 74 mm[Hg] Berlin Latif MD [address] [place], [address], [facility] 3 19:45:06 Date Recorded Body height Body mass index (BMI) Body weight Systolic blood pressure Diastolic blood pressure Provider Name and Address Organization Details Last Updated DateTime 10/26/2022 137.16 cm 38.1 kg/m2 26296.59 g 128 mm[Hg] 72 mm[Hg] Berlin Latif MD [address] [place], [address], [facility] 3 12:34:25 Social History Question Answer Notes LastModified by Organization D etails LastModified Time Do You Feel Safe At Home? Yes shaun Information not available 11/12/2021 Sex: Female Functional Status None recorded. Mental Status None recorded. Family History Relationship Description Onset Age of this Age Resolved Age Notes Notes:mother of a CVA, father of unknown causes, one sibling with diabetes, one with HBP Medical History No medical history recorded. Gynecological History Statement/Question Response Menses Monthly N Abnormal Pap N Obstetrics History GPAL:G 2 P 0 0 0 2 Type Value Living 2 Total 2 Immunizations Vaccine Type Date Status Provider Name and Address Organization Details Recorded Time COVID-19, mRNA, LNP-S, PF, 30 mcg/0.3 mL dose, fina-sucrose 04/22/2021 completed MARI MADDEN [address] [place] [address], [phone], [facility] - [facility] 04/22/2021 10:25:18 Past Encounters Encounter ID Performer Location Encounter Start Date Encounter Closed Date Diagnosis/Indication Diagnosis SNOMED-CT Code [id number] Berlin Latif MD [facility] [address] [place] [phone] 04/08/2020 18:38:54 04/08/2020 19:27:07 Hyperlipidemia [id number] Berlin Latif MD [facility] [address] [place] [address] 05/05/2020 14:07:37 05/05/2020 15:43:48 Hyperlipidemia 01850110 [id number] Berlin Latif MD [facility] [address] [place] [address] 09/25/2020 10:01:02 09/25/2020 10:25:23 Hypothyroidism 98408832 Hyperlipidemia 19010295 [id number] Berlin Latif MD [facility] [address] [place] [address] 10/27/2020 13:57:50 10/28/2020 14:10:59 Hypothyroidism 11977793 [id number] Berlin Latif MD [facility] [address] [place] [address] 12/01/2020 19:25:23 12/02/2020 17:16:05 Hypothyroidism 25696465 [id number] Berlin Latif MD [facility] [address] [place] [address] 12/02/2020 16:34:51 12/02/2020 17:20:52 Hypothyroidism 02748283 [id number] MARI MADDEN [facility] [address] [place] [address] 04/22/2021 10:11:37 04/22/2021 10:39:25 Administration of SARS-CoV-2 mRNA vaccine [id number] Berlin Latif MD [facility] [address] [place] [address] 06/04/2021 10:07:12 10/05/2021 16:11:14 Hypothyroidism 23127594 Screening mammography 24 991998 Renewal of prescription 711992323 Hyperlipidemia 08189364 [id number] Linda Bustillo NP [facility] [address] [place] [phone] 08/24/2021 11:26:55 08/24/2021 12:38:42 Screening for malignant neoplasm of breast 813902489 Perimenopausal state 161 4553897034 04 Osteoarthritis of hip 23 5587014 [id number] Berlin Latif MD [facility] [address] [place] [address] 11/12/2021 11:51:28 11/12/2021 12:37:59 Hypothyroidism 21636536 Renewal of prescription 145270313 Hyperlipidemia 43458210 [id number] MARI MADDEN [facility] [address] [place] [address] 01/20/2022 10:25:07 01/20/2022 11:17:29 Administration of SARS-CoV-2 mRNA vaccine 5011353234 [id number] Linda Bustillo NP [facility] [address] [place] [id number] 02/08/2022 11:07:56 02/08/2022 11:48:15 Easy bruising 149056340 Venereal d isease screening 864561431 Subcutaneous nodule 9532 5000 Lightheadedness 22347439 8 [id number] Berlin Latif MD [facility] [address] [place] [address] 02/18/2022 11:33:38 02/18/2022 12:32:47 Easy bruising 004693113 Subcutaneous nodule 9532 5000 [id number] Berlin Latif MD [facility] [address] [place] [address] 06/15/2022 17:56:46 06/15/2022 18:31:01 Prediabetes 043592167 [id number] Berlin Latif MD [facility] [address] [place] [phone] 07/13/2022 18:04:26 07/13/2022 18:37:34 Prediabetes 959148402 Hyperlipidemia 75926680 Hypothyroidism 63523609 Adult [facility] th examination 873144158 [id number] Berlin Latif MD [facility] [address] [place] [address] 10/26/2022 19:02:52 10/26/2022 19:29:34 Prediabetes 576172181 [facility] [id number] Health Concerns Section Related Observation LastModified by Organization Detai ls LastModified Time None Recorded Concern Status LastModified by Organization Details LastModified Time None Recorded Advance Directives Directive None Recorded Payers Encounter Date Sequence Insurance Name Policy Number Policy Smith Covered Member ID Smith Member ID Guarantor Name 10/26/2022 SLIDING FEE SCHEDULE - DISCOUNT Sera Mcbride de Allen 07/13/2022 SLIDING FEE SCHEDULE - DISCOUNT Sera Mcbride de Allen 06/15/2022 SLIDING FEE SCHEDULE - DISCOUNT Sera Mcbride de Allen 02/18/2022 SLIDING FEE SCHEDULE - DISCOUNT Sera Mcbride de Allen 02/08/2022 SLIDING FEE SCHEDULE - DISCOUNT Sera Mcbride de Allen 01/20/2022 SLIDING FEE SCHEDULE - DISCOUNT Sera Mcbride de Allen 11/12/2021 SLIDING FEE SCHEDULE - DISCOUNT Sera Mcbride de Allen 08/24/2021 SLIDING FEE SCHEDULE - DISCOUNT Sera Mcbride de Allen 04/22/2021 SLIDING FEE SCHEDULE - DISCOUNT Sera Mcbride de Allen 12/02/2020 SLIDING FEE SCHEDULE - DISCOUNT Sera Mcbride de Allen 12/01/2020 SLIDING FEE SCHEDULE - DISCOUNT Sera Mcbride de Allen 10/27/2020 SLIDING FEE SCHEDULE - DISCOUNT Sera Mcbride de Allen 09/25/2020 SLIDING FEE SCHEDULE - DISCOUNT Sera Mcbride de Allen 05/05/2020 SLIDING FEE SCHEDULE - DISCOUNT Sera Mcbride de Allen 04/08/2020 SLIDING FEE SCHEDULE - DISCOUNT Sera Mcbride de Allen Notes Date Note Type Note Provider Name and Address Organization Details Recorded Time 04/08/2020 text/html HPI Notes: remot e heart attack and cerebral embolus, needs her meds, unemployed and recovered Berlin Latif MD [address] [place] [address], [address], [email or web address] 04/08/2020 19:22:05 05/05/2020 text/html HPI Notes: unemployed, hip dysplasia limits exercise, gchildren near by, no family hx of diabetes, not interested in further eval of hips Berlin Latif MD [address] [facility] [place], [address], [facility] 05/05/2020 15:34:37 09/25/2020 text/html HPI Notes: walks stairs, hip problems in past, energy normal, has had hysterectomy Berlin Latif MD [address] [place], [address], [email or web address] 09/25/2020 10:22:08 10/27/2020 text/html HPI Notes: hip aches but walking, unemployed, hysterectomy and she says cervix removed, aneurism surgery [place] [address] [place] [address], [address], [email or web address] 10/27/2020 18:14:02 12/02/2020 text/html HPI Notes: dieti ng and losing weight for hyperlipidemia, hip unchanged, caring for zeny, has questions about dose of levothyroxine Berlin Latif MD [address] [place], [address], [email or web address] 12/02/2020 17:14:06 04/22/2021 text/html HPI Notes: Requesting Covid 19 vaccine, booster MARI MADDEN [address] [place], [address], [email or web address] 04/22/2021 10:30:05 06/04/2021 text/html HPI Notes: safe at home, lives with son, has been eating more over holidays, brought stool, has had hysterectomy Berlin Latif MD [facility] [place], [address], [email or web address] 06/04/2021 10:47:46 08/24/2021 text/html HPI Notes: Sera McbrideEloise, 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 We also took time today to discuss menopause and COVID-19 vaccination at great length. Health History Updated. Has grandchildren; 11, 8 and 4. Son refuses COVID-19 vaccination. No family history of breast cancer. No cervical cancer history. Lives with non-romantic partner (ex-). Linda Bustillo NP [address] [place], [address], [facility] [employer] 08/24/2021 16:01:18 11/12/2021 text/html HPI Notes: energ y about the same, weight sl up Berlin Latif MD [address] [place], [address], [facility] [employer] 11/12/2021 13:31:34 01/20/2022 text/html HPI Notes: Requesting booster, Primary series completed, first booster 04/22/21 MARI MADDEN [address] [place], [address], [facility] [employer] 01/20/2022 13:23:52 02/08/2022 text/html HPI Notes: Sera Pickering (Eloise) presents today as an urgent add-on for a yellow lump on her arm. Patient arrived late for today's appointment so we had limited time to discuss multiple concerns. Patient noted a soft, non-tender bump on her left forearm last week. The lump was described as yellow and surrounded by a dark purple bruise. No preceding trauma or injury to area. Lump was non-painful. Patient attributes the lump to eating a large amount of pork rinds in the two preceding days. She has a similar episode of finger bruising and 14 years ago also after eating a large amount of pork rinds. The bruising is decreasing but the lump has stayed the same size, approximately the size of a pea. No other easy bruising, lesions noted. No black, tarry stools. Patient also reports a history in the past of a pre-infarction and has been told to avoid strong emotions. She notes that she has recently been having strong emotions and has had two episodes of dizziness after having intercourse with her partner. No vision changes, chest pain, SOB. No weakness. Patient also interested in STI screening. Wonders if she should resume pap smears now that she is sexually active again. Patient is S/P complete hysterectomy so I reassured her that this was not needed although STI screening is appropriate. Patient also shared that when she goes to a democrat and has a beer, she will skip her TSH and statin doses. Has beer rarely: no more than 1x/month. I encouraged her to take her medications even when she drinks although eliminating beer would also be a good idea if she is concerned about mixing ETOH with her medications. Linda Bustillo, [employer] [address] [place], [address], [facility] - [facility] 02/08/2022 17:15:01 OBGyn Episode No OBEpisode recorded.
== END 2023-08-27 14:15 | disposition home or self-care (01) ==
LOC: AMB 09-02 02:36
PROVIDERS: PCP Physician Assistant; Visit Provider Family Medicine
DX: F41.9 Anxiety disorder, unspecified (principal); R20.2 Paresthesia of skin
CPT/HCPCS: A0998